=== PATIENT | male | born 1940 | race Caucasian/White ===

== ENCOUNTER 2020-10-11 13:49 | Inpatient (IN) | payer MEDICARE ==
[~2020-10-11] VITALS: Ht 193 cm; Wt 142.6 kg
[2020-10-11 14:40] LABS: Basophils # (auto) 0 10 ^3/uL (0-0.2); Basophils % (auto) 0.5 % (0.0-2.0); Eosinophils # (auto) 0.2 10 ^3/uL (0-0.8); Eosinophils % (auto) 2.6 % (0.0-7.0); Hematocrit 29.4 % (41.0-53.0); Hemoglobin 9.7 g/dL (13.5-17.5); Lymphocytes # (auto) 0.6 10 ^3/uL (0.4-5.4); Lymphocytes % (auto) 9.6 % (10.0-50.0); Mean Corpuscular Hemoglobin 29.8 pg (28.0-32.0); Mean Corpuscular Hgb Conc. 32.9 g/dL (32.0-36.0); Mean Corpuscular Volume 90.6 fL (80.0-100.0); Monocytes # (auto) 0.6 10 ^3/uL (0-1.3); Monocytes % (auto) 10.1 % (0.0-12.0); Neutrophils # (auto) 4.8 10 ^3/uL (1.6-8.6); Neutrophils % (auto) 77.2 % (37.0-80.0); Nucleated Red Blood Cells % 0.1 %; Platelet Count (auto) 300 10^3/uL (140-450); Red Blood Cells 3.24 10^6/uL (4.5-5.90); Red Cell Distribution Width 20.3 % (11.8-14.3); White Blood Cell 6.3 10^3/uL (4.4-10.8)
[2020-10-11 15:06] LABS: Albumin 2.7 g/dL (3.4-5.0); BUN/Creatinine Ratio 20.6; Calcium 8.3 mg/dL (8.5-10.1); Potassium 4.4 mmol/L (3.5-5.1)
[2020-10-11 15:08] LABS: Bilirubin, Total 0.5 mg/dL (0.2-1.0); Total Protein 7.1 g/dL (6.4-8.2)
[2020-10-11] MEDS ORDERED: PIPERACILLIN-TAZOB 3.375GM 100 ML IV ONE (16:45)
[2020-10-11] MEDS ORDERED: NITROGLYCERIN 0.4 MG SL TAB SL PRN ×2 (17:15→17:30)
[2020-10-11] MEDS ORDERED: MORPHINE SULF INJ 2 MG/ML SYRINGE 1ML IV PRN ×3 (17:15→17:30)
[2020-10-11] MEDS ORDERED: MEROPENEM 1GM IVPB 100 ML IV ONE (17:30)
[2020-10-11] MEDS ORDERED: ALUM & MAG HYDROX-SIMETH LIQ(MAALOX) 30 ML PO PRN (17:30)
[2020-10-11] MEDS ORDERED: ACETAMINOPHEN 325 MG TAB PO PRN (17:30)
[2020-10-11] MEDS ORDERED: LORazepam 0.5 MG TAB PO PRN (17:30)
[2020-10-11] MEDS ORDERED: VANCOMYCIN PER PHARMACY 0 MG IV SCH (17:30)
[2020-10-11] MEDS ORDERED: ONDANSETRON HCL 4 MG/2 ML VIAL IV PRN (17:30)
[2020-10-11] MEDS ORDERED: DOCUSATE SOD 100 MG CAP PO PRN (17:30)
[2020-10-11] MEDS ORDERED: MORPHINE SULF INJ 2 MG/ML SYRINGE 1ML IV ONE (18:00)
[2020-10-11 18:36] LABS: Cholesterol 76 mg/dL (< 200); HDL Cholesterol 29 mg/dL (40-59); LDL Cholesterol 44 mg/dL (< 100); Triglycerides 68 mg/dL (< 150)
[2020-10-11 18:39] LABS: Urine Bacteria NONE SEEN /hpf (None Seen); Urine Blood Negative /uL (Negative); Urine Hyaline Cast FEW /lpf (0 - 2); Urine Specific Gravity 1.011 (1.001-1.035); Urine WBC 3 /hpf (0 - 3)
[2020-10-11 18:53] LABS: Amphetamine Screen, Urine NEGATIVE (NEGATIVE); Barbiturate Scree,Urine NEGATIVE (NEGATIVE); Benzodiazephine Screen, Urine NEGATIVE (NEGATIVE); Cannabinoid Screen, Urine NEGATIVE (NEGATIVE); Cocaine Screen, Urine NEGATIVE (NEGATIVE); Opiate Scree,Urine NEGATIVE (NEGATIVE); Phencyclidine Screen, Urine NEGATIVE (NEGATIVE)
[2020-10-11 19:03] VITALS: BP 107/62
[2020-10-11 20:18] VITALS: BP 108/62
[2020-10-11 22:00] VITALS: BP 108/62
[2020-10-11] MEDS ORDERED: MEROPENEM 500MG IVPB 50 ML IV SCH (22:00)
[2020-10-11] MEDS: IPRATROPIUM BROM 0.5 MG/2.5ML INH SOL NEB SCH ×2 (22:42→22:45)
[2020-10-11] MEDS: APIXABAN 5 MG TAB PO SCH (23:09)
[2020-10-11] MEDS: SACUBITRIL-VALSARTAN 24mg/26mg TAB PO SCH (23:09)
[2020-10-11] MEDS: VANCOMYCIN 1GM/250ML 250 ML IV SCH (23:11)
[2020-10-11] MEDS: CARVEDILOL 3.125 MG TAB PO SCH (23:26)
[2020-10-12] MEDS: IPRATROPIUM BROM 0.5 MG/2.5ML INH SOL NEB SCH ×6 (02:31→22:11)
[2020-10-12 05:00] VITALS: BP 100/57
[2020-10-12] MEDS: SODIUM CHLORIDE 0.9% 1,000 ML IV SCH ×2 (05:43→11:11)
[2020-10-12] MEDS: FUROSEMIDE 40 MG/4 ML VIAL IV SCH ×2 (06:00→18:43)
[2020-10-12] MEDS: MEROPENEM 1GM IVPB 100 ML IV SCH ×3 (06:27→22:35)
[2020-10-12] MEDS ORDERED: METH2.5T PO (06:30)
[2020-10-12] MEDS ORDERED: FOLI1TAB6 PO (06:30)
[2020-10-12] MEDS ORDERED: METO2.5T11 PO (06:30)
[2020-10-12] MEDS ORDERED: POTA1TAB61 PO (06:30)
[2020-10-12] MEDS ORDERED: UMEC1AER IN (06:30)
[2020-10-12] MEDS ORDERED: MULT-1018 PO (06:30)
[2020-10-12] MEDS ORDERED: CHOL20007 OR (06:30)
[2020-10-12] MEDS ORDERED: FURO20TA3 PO (06:30)
[2020-10-12] MEDS ORDERED: CARV6.2551 PO (06:30)
[2020-10-12] MEDS ORDERED: SACU1TAB PO (06:30)
[2020-10-12] MEDS ORDERED: APIX5TAB PO (06:30)
[2020-10-12] MEDS ORDERED: CITA10TA70 PO (06:30)
[2020-10-12] MEDS ORDERED: ATOR10TA PO (06:32)
[2020-10-12 06:53] LABS: Basophils # (auto) 0 10 ^3/uL (0-0.2); Basophils % (auto) 0.5 % (0.0-2.0); Eosinophils # (auto) 0.2 10 ^3/uL (0-0.8); Eosinophils % (auto) 2.4 % (0.0-7.0); Hematocrit 26.7 % (41.0-53.0); Hemoglobin 8.8 g/dL (13.5-17.5); Lymphocytes # (auto) 0.6 10 ^3/uL (0.4-5.4); Lymphocytes % (auto) 6.5 % (10.0-50.0); Mean Corpuscular Hemoglobin 29.5 pg (28.0-32.0); Mean Corpuscular Hgb Conc. 32.7 g/dL (32.0-36.0); Mean Corpuscular Volume 90.2 fL (80.0-100.0); Monocytes # (auto) 0.4 10 ^3/uL (0-1.3); Monocytes % (auto) 5.2 % (0.0-12.0); Neutrophils # (auto) 7.3 10 ^3/uL (1.6-8.6); Neutrophils % (auto) 85.4 % (37.0-80.0); Platelet Count (auto) 282 10^3/uL (140-450); Red Blood Cells 2.96 10^6/uL (4.5-5.90); White Blood Cell 8.5 10^3/uL (4.4-10.8)
[2020-10-12 07:06] LABS: Red Cell Distribution Width 20.2 % (11.8-14.3)
[2020-10-12 07:12] LABS: Potassium 3.9 mmol/L (3.5-5.1)
[2020-10-12 07:18] LABS: INR 1.23 (0.9-1.15)
[2020-10-12 07:26] LABS: Albumin 2.5 g/dL (3.4-5.0); BUN/Creatinine Ratio 20.6; Bilirubin, Total 0.6 mg/dL (0.2-1.0); Calcium 8.3 mg/dL (8.5-10.1); Magnesium 2.2 mg/dL (1.6-2.6); Phosphorus 2.9 mg/dL (2.5-4.90); Total Protein 6.4 g/dL (6.4-8.2)
[2020-10-12 08:15] VITALS: BP 108/65
[2020-10-12 08:52] VITALS: BP 108/65
[2020-10-12] MEDS: HYDROcodone-ACET 5/325MG TAB PO PRN (09:27)
[2020-10-12] MEDS: CARVEDILOL 3.125 MG TAB PO SCH ×3 (10:00→22:34)
[2020-10-12] MEDS: CITALOPRAM HYDROBR 20 MG TAB PO SCH (11:10)
[2020-10-12] MEDS: APIXABAN 5 MG TAB PO SCH ×2 (11:11→22:34)
[2020-10-12] MEDS: SACUBITRIL-VALSARTAN 24mg/26mg TAB PO SCH ×2 (11:11→22:34)
[2020-10-12 12:41] VITALS: BP 94/53
[2020-10-12] MEDS: PANTOPRAZOLE 40 MG TAB PO SCH (15:34)
[2020-10-12 16:35] VITALS: BP 105/59
[2020-10-12 16:37] LABS: % Iron Saturation 14.7 % (20-55)
[2020-10-12] MEDS: VANCOMYCIN 1GM/250ML 250 ML IV SCH (18:42)
[2020-10-12 22:00] VITALS: BP 109/60
[2020-10-13] MEDS: IPRATROPIUM BROM 0.5 MG/2.5ML INH SOL NEB SCH ×6 (02:00→22:39)
[2020-10-13 05:00] VITALS: BP 103/56
[2020-10-13] MEDS: FUROSEMIDE 40 MG/4 ML VIAL IV SCH ×2 (06:31→18:38)
[2020-10-13] MEDS: MEROPENEM 1GM IVPB 100 ML IV SCH ×3 (06:31→22:06)
[2020-10-13] MEDS: SODIUM CHLORIDE 0.9% 1,000 ML IV SCH (06:31)
[2020-10-13 06:46] LABS: Basophils # (auto) 0 10 ^3/uL (0-0.2); Eosinophils # (auto) 0.3 10 ^3/uL (0-0.8); Eosinophils % (auto) 3.4 % (0.0-7.0); Hematocrit 26.2 % (41.0-53.0); Hemoglobin 8.6 g/dL (13.5-17.5); Lymphocytes # (auto) 0.8 10 ^3/uL (0.4-5.4); Mean Corpuscular Hemoglobin 29.6 pg (28.0-32.0); Mean Corpuscular Hgb Conc. 32.9 g/dL (32.0-36.0); Mean Corpuscular Volume 90.2 fL (80.0-100.0); Monocytes # (auto) 0.3 10 ^3/uL (0-1.3); Monocytes % (auto) 3.3 % (0.0-12.0); Neutrophils # (auto) 6.5 10 ^3/uL (1.6-8.6); Neutrophils % (auto) 83.3 % (37.0-80.0); Platelet Count (auto) 296 10^3/uL (140-450); Red Blood Cells 2.91 10^6/uL (4.5-5.90); Red Cell Distribution Width 20.4 % (11.8-14.3); White Blood Cell 7.8 10^3/uL (4.4-10.8)
[2020-10-13 08:15] VITALS: BP 103/60
[2020-10-13 09:00] VITALS: BP 103/60
[2020-10-13] MEDS: CARVEDILOL 3.125 MG TAB PO SCH ×2 (10:00→22:00)
[2020-10-13] MEDS: CITALOPRAM HYDROBR 20 MG TAB PO SCH (10:49)
[2020-10-13] MEDS: PANTOPRAZOLE 40 MG TAB PO SCH (10:50)
[2020-10-13] MEDS: SACUBITRIL-VALSARTAN 24mg/26mg TAB PO SCH ×2 (10:50→22:00)
[2020-10-13] MEDS: VANCOMYCIN 1GM/250ML 250 ML IV SCH (11:05)
[2020-10-13 13:00] VITALS: BP 113/66
[2020-10-13 17:00] VITALS: BP_SYST 109; BP_SYST 150; BP_DIAS 57; BP_DIAS 87
[2020-10-13] MEDS: FERROUS SULFATE 325 MG TAB PO SCH (18:39)
[2020-10-13 22:00] VITALS: BP 88/56
[2020-10-14] MEDS: IPRATROPIUM BROM 0.5 MG/2.5ML INH SOL NEB SCH ×6 (02:48→22:32)
[2020-10-14 05:00] VITALS: BP 109/61
[2020-10-14] MEDS: FUROSEMIDE 40 MG/4 ML VIAL IV SCH ×2 (06:00→17:27)
[2020-10-14] MEDS: VANCOMYCIN 1GM/250ML 250 ML IV SCH ×2 (06:00→22:59)
[2020-10-14] MEDS: MEROPENEM 1GM IVPB 100 ML IV SCH ×3 (07:44→21:52)
[2020-10-14 09:00] VITALS: BP 106/67
[2020-10-14] MEDS: CARVEDILOL 3.125 MG TAB PO SCH ×2 (09:34→22:00)
[2020-10-14] MEDS: FERROUS SULFATE 325 MG TAB PO SCH ×2 (09:34→17:27)
[2020-10-14] MEDS: SACUBITRIL-VALSARTAN 24mg/26mg TAB PO SCH ×2 (09:35→22:00)
[2020-10-14] MEDS: CITALOPRAM HYDROBR 20 MG TAB PO SCH (09:36)
[2020-10-14] MEDS: PANTOPRAZOLE 40 MG TAB PO SCH (09:36)
[2020-10-14 09:39] LABS: Folate (Folic Acid) 8.68 ng/mL (5.38-24)
[2020-10-14 13:00] VITALS: BP 120/64
[2020-10-14 16:46] VITALS: BP 106/68
[2020-10-14 20:52] VITALS: BP 106/68
[2020-10-14] MEDS: NYSTATIN TOPICAL POWDER 15GM TOP SCH (21:53)
[2020-10-14 22:00] VITALS: BP 104/50
[2020-10-15] MEDS: HYDROcodone-ACET 5/325MG TAB PO PRN ×2 (00:21→09:00)
[2020-10-15] MEDS: IPRATROPIUM BROM 0.5 MG/2.5ML INH SOL NEB SCH ×7 (02:00→23:04)
[2020-10-15 05:00] VITALS: BP 102/64
[2020-10-15] MEDS: MEROPENEM 1GM IVPB 100 ML IV SCH ×3 (05:51→21:11)
[2020-10-15] MEDS: FUROSEMIDE 40 MG/4 ML VIAL IV SCH ×2 (06:16→18:03)
[2020-10-15] MEDS: FERROUS SULFATE 325 MG TAB PO SCH ×2 (08:10→18:03)
[2020-10-15 08:49] VITALS: BP 112/66
[2020-10-15] MEDS: PANTOPRAZOLE 40 MG TAB PO SCH (09:44)
[2020-10-15] MEDS: SACUBITRIL-VALSARTAN 24mg/26mg TAB PO SCH ×2 (09:44→22:00)
[2020-10-15] MEDS: CITALOPRAM HYDROBR 20 MG TAB PO SCH (09:46)
[2020-10-15] MEDS: CARVEDILOL 3.125 MG TAB PO SCH ×2 (09:54→22:00)
[2020-10-15] MEDS: NYSTATIN TOPICAL POWDER 15GM TOP SCH ×2 (09:55→21:12)
[2020-10-15 13:11] VITALS: BP 97/58
[2020-10-15] MEDS ORDERED: VANCOMYCIN 1GM/250ML 250 ML IV SCH (14:00)
[2020-10-15 16:49] VITALS: BP 106/64
[2020-10-15 22:00] VITALS: BP 100/64
[2020-10-16 02:32] LABS: Potassium 3.7 mmol/L (3.5-5.1)
[2020-10-16 02:35] LABS: INR 1.15 (0.9-1.15)
[2020-10-16 05:00] VITALS: BP 103/64
[2020-10-16] MEDS: MEROPENEM 1GM IVPB 100 ML IV SCH (06:13)
[2020-10-16] MEDS: FUROSEMIDE 40 MG/4 ML VIAL IV SCH ×2 (06:13→17:51)
[2020-10-16] MEDS: IPRATROPIUM BROM 0.5 MG/2.5ML INH SOL NEB SCH ×5 (07:51→22:35)
[2020-10-16] MEDS: FERROUS SULFATE 325 MG TAB PO SCH ×2 (08:00→17:51)
[2020-10-16 09:00] VITALS: BP 106/75
[2020-10-16] MEDS ORDERED: ceFAZolin 1GM/50ML 50 ML IV ONE (09:56)
[2020-10-16] MEDS: CARVEDILOL 3.125 MG TAB PO SCH ×2 (10:00→22:00)
[2020-10-16] MEDS: NYSTATIN TOPICAL POWDER 15GM TOP SCH ×2 (10:00→22:08)
[2020-10-16] MEDS ORDERED: ceFAZolin 1GM VL ONE (10:19)
[2020-10-16] MEDS ORDERED: ROPIVACAINE 0.5% (5MG/ML) 20ML AMPULE IJ ONE (10:19)
[2020-10-16] MEDS ORDERED: fentaNYL CITRATE 100 MCG/2 ML VL ONE ×2 (10:46→11:01)
[2020-10-16] MEDS ORDERED: MIDAZOLAM HCL 1MG/1ML-2 ML VIAL ONE (10:46)
[2020-10-16] MEDS ORDERED: ONDANSETRON HCL 4 MG/2 ML VIAL IV PRN (11:45)
[2020-10-16 13:00] VITALS: BP 121/75
[2020-10-16] MEDS: SACUBITRIL-VALSARTAN 24mg/26mg TAB PO SCH ×2 (13:20→22:08)
[2020-10-16] MEDS: PANTOPRAZOLE 40 MG TAB PO SCH (13:20)
[2020-10-16] MEDS: CITALOPRAM HYDROBR 20 MG TAB PO SCH (13:20)
[2020-10-16] MEDS: CEFEPIME 2 GM in SODIUM CHL 0.9% 50 ML IV SCH (14:17)
[2020-10-16 17:00] VITALS: BP 101/60
[2020-10-16] MEDS ORDERED: LIDOCAINE 1% (LOCAL ANESTH.) PF 5ml SDV ID ONE (18:15)
[2020-10-16 22:00] VITALS: BP 125/73
[2020-10-16] MEDS: SODIUM CHLOR 0.9% PF (SALINE LOCK) 10ML VIAL/SYR IV SCH (22:08)
[2020-10-16] MEDS: HYDROcodone-ACET 5/325MG TAB PO PRN (23:52)
[2020-10-17] MEDS: CEFEPIME 2 GM in SODIUM CHL 0.9% 50 ML IV SCH ×2 (00:28→12:55)
[2020-10-17] MEDS: IPRATROPIUM BROM 0.5 MG/2.5ML INH SOL NEB SCH ×3 (01:46→09:35)
[2020-10-17 05:00] VITALS: BP 101/52
[2020-10-17] MEDS: FUROSEMIDE 40 MG/4 ML VIAL IV SCH (05:56)
[2020-10-17] MEDS: FERROUS SULFATE 325 MG TAB PO SCH (08:18)
[2020-10-17] MEDS: PANTOPRAZOLE 40 MG TAB PO SCH (09:22)
[2020-10-17] MEDS: CITALOPRAM HYDROBR 20 MG TAB PO SCH (09:23)
[2020-10-17] MEDS: SACUBITRIL-VALSARTAN 24mg/26mg TAB PO SCH (09:23)
[2020-10-17] MEDS: CARVEDILOL 3.125 MG TAB PO SCH (09:23)
[2020-10-17] MEDS: NYSTATIN TOPICAL POWDER 15GM TOP SCH (09:24)
[2020-10-17] MEDS: SODIUM CHLOR 0.9% PF (SALINE LOCK) 10ML VIAL/SYR IV SCH (09:54)
[2020-10-17 15:49] VITALS: BP 111/72
== END 2020-10-17 18:00 | disposition home health service (06) | DRG 617 ==
LOC: ER 13:49 → TELE 13:50 → TELE-WESTW 20:22
PROVIDERS: ADMIT Hospitalist; ATTEND Family Medicine
PROC: 02HV33Z Insertion of Infusion Device into Superior Vena Cava, Percutaneous Approach (ICD-10-PCS; 2020-10-16)
PROC: 0Y6S0Z0 Detachment at Left 2nd Toe, Complete, Open Approach (ICD-10-PCS; principal; 2020-10-16 10:40)
DX: E11.69 Type 2 diabetes mellitus with other specified complication (principal); M86.172 Other acute osteomyelitis, left ankle and foot; L03.116 Cellulitis of left lower limb; D68.4 Acquired coagulation factor deficiency; I48.20 Chronic atrial fibrillation, unspecified; N17.9 Acute kidney failure, unspecified; Z20.822 Contact with and (suspected) exposure to COVID-19; D63.8 Anemia in other chronic diseases classified elsewhere; L97.529 Non-pressure chronic ulcer of other part of left foot with unspecified severity; I25.10 Atherosclerotic heart disease of native coronary artery without angina pectoris; I25.5 Ischemic cardiomyopathy; I87.2 Venous insufficiency (chronic) (peripheral); I50.82 Biventricular heart failure; I11.0 Hypertensive heart disease with heart failure; I50.9 Heart failure, unspecified; M06.9 Rheumatoid arthritis, unspecified; J44.9 Chronic obstructive pulmonary disease, unspecified; N52.9 Male erectile dysfunction, unspecified; I89.0 Lymphedema, not elsewhere classified; E29.1 Testicular hypofunction; E53.8 Deficiency of other specified B group vitamins; L97.519 Non-pressure chronic ulcer of other part of right foot with unspecified severity; E66.9 Obesity, unspecified; B96.5 Pseudomonas (aeruginosa) (mallei) (pseudomallei) as the cause of diseases classified elsewhere; I87.8 Other specified disorders of veins; E11.621 Type 2 diabetes mellitus with foot ulcer; Z68.39 Body mass index [BMI] 39.0-39.9, adult; Z88.2 Allergy status to sulfonamides; Z79.01 Long term (current) use of anticoagulants; Z86.718 Personal history of other venous thrombosis and embolism; Z95.1 Presence of aortocoronary bypass graft
CPT/HCPCS: 36415; 36569; 71045; 73700; 73718; 80048; 80053; 80061; 80202; 80307; 81001; 82270; 82306; 82565; 82607; 82746; 83036; 83540; 83550; 83605; 83735; 84100; 84425; 84443; 84484; 85025; 85610; 85652; 85730; 86850; 86900; 86901; 87040; 87070; 87075; 87077; 87086; 87186; 87205; 87426; 93925; 94640; 96365; 96366; 96375; G0378; J0690; J2185; J2250; J2543